=== PATIENT | female | born 1985 | race Hispanic/Latino ===

== ENCOUNTER 2018-09-04 11:09 | Emergency (ER) | payer MEDICAID, SELFPAY ==
[2018-09-04 12:01] LABS: #Eosinphils 0.1 thou/uL (0.0-0.7); #Lymphocytes 1.5 thou/uL (1.20-3.40); #Monocytes 0.8 thou/uL (0.11-0.59); #Neutrophils 9.8 thou/uL (1.40-6.50); %Basophils 0.3 % (0.0-1.0); %Eosinophils 0.6 % (0.0-10.0); %Lymphocytes 12.2 % (21.0-51.0); %Monocytes 6.6 % (0.0-10.0); %Neutrophils 80.3 % (42.0-75.0); Hemoglobin 13.4 g/dL (12.0-16.0); Mean Corpuscular HGB CONC 32.8 g/dL (32.0-36.0); Mean Corpuscular Volume 88.4 fL (78.0-98.0); Platelet Count 175 thou/uL (130-400); RBC Distribution Width 12.6 % (11.5-14.5); Red Blood Cell (RBC) Count 4.61 mill/uL (4.20-5.40); White Blood Cell (WBC) Count 12.2 thou/uL (4.8-10.8)
[2018-09-04 12:11] LABS: Bilirubin Negative (Negative); Blood, Urine Large (Negative); Glucose, Urine (Dipstick) Negative (Negative); Leukocyte Trace (Negative); Nitrite Negative (Negative); Protein, Urine (Dipstick) Trace mg/dL (Neg-Trace); Specific Gravity, Urine 1.015 (1.005-1.030); Urobilinogen 0.2 mg/dL (0.2-1.0)
[2018-09-04 12:12] LABS: Clarity Hazy (Clear)
[2018-09-04 12:25] LABS: Pregnancy Test - Urine (BHCG) POSITIVE (Negative); Pregu Control Background? CLEAR/WHITE (CLR/WHITE); Pregu Control Bar Appear? YES (CONTROL BAR); Specific Gravity 1.015 (1.002-1.036)
[2018-09-04 12:26] LABS: ALT (SGPT) 13 U/L (8-55); AST (SGOT) 18 U/L (5-34); Albumin 4.2 g/dL (3.5-5.0); Alkaline Phosphatase 90 U/L (40-150); Anion Gap 13 mmol/L (10-20); BUN (Urea Nitrogen) 7 mg/dL (7.0-18.7); Bilirubin, Total 0.4 mg/dL (0.2-1.2); Calc. Creatinine Clearance 0 mL/min (70-130); Calcium 9.5 mg/dL (7.8-10.44); Carbon Dioxide 22 mmol/L (22-29); Chloride 105 mmol/L (98-107); Estimated GFR-MDRD Greater than 90; Globulin 3.4 g/dL (2.4-3.5); Glucose 86 mg/dL (70-105); Potassium 3.8 mmol/L (3.5-5.1); Protein, Total 7.6 g/dL (6.0-8.3); Sodium 136 mmol/L (136-145)
[2018-09-04 12:27] LABS: Squamous Epithelial 0-3 HPF (0-3)
[2018-09-04 12:28] LABS: RBC/HPF 21-50 HPF (0-3)
[2018-09-04 12:29] LABS: Bacteria/HPF None Seen HPF (None Seen); Hyaline Casts/LPF NONE SEEN LPF (0-3 Hyaline)
--- NOTE | 2018-09-04 12:34 | ULT ---
ULTRASOUND PELVIC: HISTORY: . Vaginal bleeding. COMPARISON: None. FINDINGS: Real-time, johnson scale, and color evaluation of the pelvis is performed by transvaginal approach. Tra nsvaginal approach was not performed per patient. Ovaries are not seen. The uterus measures 10.4 x 4.6 x 5.4 cm. Endometrial thickness is 1.3 cm. No intrauterine is seen. IMPRESSION: No intrauterine is visualized, although the patient did refuse transvaginal approach. Bharathi mmend correlation with HCG. If HCG level is positive, this would be a of unknown location and post followup HCG and ultrasound would be recommended. POS: [facility]
[2018-09-04] MEDS ORDERED: Acetaminophen 500 MG TAB ONE (16:19)
== END 2018-09-04 18:34 | disposition home or self-care (01) ==
LOC: ERS 11:09
DX: O20.9 Hemorrhage in early pregnancy, unspecified (principal)
CPT/HCPCS: 36415; 76856; 80053; 81003; 81015; 81025; 84702; 85025; 86900; 86901; 99284

== ENCOUNTER 2018-09-07 17:30 | Emergency (ER) | payer SELFPAY ==
[2018-09-07 18:12] LABS: #Eosinphils 0.2 thou/uL (0.0-0.7); #Lymphocytes 1.8 thou/uL (1.20-3.40); #Monocytes 0.7 thou/uL (0.11-0.59); #Neutrophils 4.8 thou/uL (1.40-6.50); %Basophils 0.5 % (0.0-1.0); %Eosinophils 2.1 % (0.0-10.0); %Lymphocytes 23.9 % (21.0-51.0); %Monocytes 8.8 % (0.0-10.0); %Neutrophils 64.6 % (42.0-75.0); Hemoglobin 12.1 g/dL (12.0-16.0); Mean Corpuscular HGB CONC 31.6 g/dL (32.0-36.0); Mean Corpuscular Hemoglobin 28.5 pg (27.0-31.0); Mean Corpuscular Volume 90.4 fL (78.0-98.0); Mean Platelet Volume 9.8 fL (7.4-10.4); Platelet Count 194 thou/uL (130-400); RBC Distribution Width 12.6 % (11.5-14.5); Red Blood Cell (RBC) Count 4.23 mill/uL (4.20-5.40); White Blood Cell (WBC) Count 7.4 thou/uL (4.8-10.8)
--- NOTE | 2018-09-07 21:41 | ULT ---
ULTRASOUND PELVIC TRANSVAGINAL WITH DOPPLER: 09/07/18 HISTORY: Vaginal bleeding. Decreased HCG. COMPARISON: Pelvic ultrasound 09/04/18. FINDINGS: Real time johnson scale, color doppler and spectral analysis of the pelvis was performed in the transvag inal approach. The left ovary is again not well seen. There is poor documentation of flow in the righ t ovary although it is retrouterine and likely positional in nature as it is too far from the probe. There is trace free fluid in the cul-de-sac. The cervix is opened measuring 1 cm with endoluminal prakash ris and hemorrhage. No intrauterine is visualized. The endometrial thickness is approximately 1 cm. IMPRESSION: Likely failed with intraluminal debris of the cervix which is open with hemorrhage. Left ov sally is again not seen. POS: [facility]
[2018-09-07] MEDS ORDERED: Ketorolac Tromethamine 30 MG/ML VIAL ONE (21:49)
[2018-09-07] MEDS ORDERED: Misoprostol 200 MCG TAB VAG SCH (23:00)
== END 2018-09-07 23:47 | disposition home or self-care (01) ==
LOC: ERS 17:30
DX: O03.4 Incomplete spontaneous abortion without complication (principal)
CPT/HCPCS: 36415; 76856; 84702; 85025; 86900; 86901; 96372; J1885

== ENCOUNTER 2018-09-08 13:31 | Emergency (ER) | payer SELFPAY ==
[2018-09-08 14:20] LABS: #Basophils 0.1 thou/uL (0.0-0.2); #Eosinphils 0.2 thou/uL (0.0-0.7); #Lymphocytes 1.7 thou/uL (1.20-3.40); #Monocytes 0.7 thou/uL (0.11-0.59); #Neutrophils 4.1 thou/uL (1.40-6.50); %Basophils 0.8 % (0.0-1.0); %Eosinophils 2.5 % (0.0-10.0); %Lymphocytes 25.4 % (21.0-51.0); %Monocytes 10.6 % (0.0-10.0); %Neutrophils 60.7 % (42.0-75.0); Mean Corpuscular HGB CONC 30.9 g/dL (32.0-36.0); Mean Corpuscular Hemoglobin 27.8 pg (27.0-31.0); Mean Corpuscular Volume 90.2 fL (78.0-98.0); Mean Platelet Volume 9.6 fL (7.4-10.4); Platelet Count 201 thou/uL (130-400); RBC Distribution Width 12.6 % (11.5-14.5); Red Blood Cell (RBC) Count 4.32 mill/uL (4.20-5.40); White Blood Cell (WBC) Count 6.8 thou/uL (4.8-10.8)
== END 2018-09-08 15:19 | disposition home or self-care (01) ==
LOC: ERS 13:31
DX: O03.9 Complete or unspecified spontaneous abortion without complication (principal)
CPT/HCPCS: 36415; 84702; 85025; 99284

== ENCOUNTER 2019-09-30 10:12 | Inpatient (IN) | payer MEDICAID, OTHER, SELFPAY ==
[2019-09-30] MEDS ORDERED: hydrALAZINE 20 MG/ML VIAL SLOW IVP PRN ×2 (10:34→20:24)
[2019-09-30] MEDS ORDERED: Ondansetron PF 4 MG/2 ML Vial IVP PRN ×3 (10:34→20:24)
[2019-09-30] MEDS ORDERED: Promethazine HCl 25 MG/ML VIAL IM PRN ×2 (10:34→13:49)
[2019-09-30 10:39] VITALS: BMI 34.0
[2019-09-30] MEDS ORDERED: Bicitra 30 ML UDCUP PO SCH (10:45)
[2019-09-30] MEDS ORDERED: CEFAZOLIN 2 GM in Premix Bag 1 BAG IVPB SCH (10:45)
[2019-09-30] MEDS: Lactated Ringer's 1,000 ML IV SCH ×2 (10:49→11:04)
[2019-09-30] MEDS ORDERED: Bicitra 30 ML UDCUP ONE (11:03)
[2019-09-30 11:07] LABS: Hemoglobin 10.5 g/dL (12.0-16.0); Mean Corpuscular HGB CONC 33.2 g/dL (32.0-36.0); Mean Corpuscular Hemoglobin 28.5 pg (27.0-31.0); Red Blood Cell (RBC) Count 3.67 mill/uL (4.20-5.40); White Blood Cell (WBC) Count 9.4 thou/uL (4.8-10.8)
--- NOTE | 2019-09-30 11:07 | PDOC.FPROB ---
FMR OB H&P: HPI - History of Present Illness Chief Complaint: Repeat LTCS History of Present Illness: 34 yo @ 39.5 presents for repeat LTCS. pLTCS 2/2 failure to progress complicated by cervical extensions. Counseled on risks benefits and alternatives. TOLAC gm <34%, pt has elected for repeat LTCS. Rare ctx, no bleeding, DC, LOF. Pos movment. Primary Care Physician: Mac FMR OB H&P: Current - Care : 3 Para: 1011 Gestational age: 39.5 Due date: 10/02/2019 Dating Criteria: LMP c/w 1st tri US Course/Complications: Gestational thrombocytopenia, rubella NI - OB Labs Blood type: B RH: positive Antibody Screen: negative HIV: negative RPR: negative HepBsAg: negative Rubella: non-immune Quad screen: unknown Urine drug screen: not done Gonorrhea: negative Chlamydia: negative 1 hour gtt: WNL GBS: negative Platelets: Pending FMR OB H&P: History - Past Medical History PMH: Chronic vs gestational thrombocytopenia - OB History OB History: 1 prior CS for failure to progress with cervical extesnsion at delivery - Surgical History Sx History: 1 prior CS - Social History Social History: No etoh, tobacco or drug abuse - Family History Family History: Denies FMR OB H&P: Medications - Current Home Medications: Medication Instructions Recorded Confirmed Type Iron Carb,Gl/FA/B12/C/Docusate 1 tablet PO DAILY 11/24/16 11/24/16 History [Ferralet 90] Vit,Calc76/Iron/Folic 1 tablet PO DAILY 11/24/16 11/27/16 History [Prenatabs Rx Tablet] Allergies/Adverse Reactions: Allergies Allergy/AdvReac Type Severity Reaction Status Date / Time No Known Allergies Allergy Verified 09/30/19 10:37 FMR OB H&P: ROS - Review of Systems General: denies: fever/chills Eyes: denies: eye pain, vision changes, scotomas ENT: denies: nasal congestion Cardiovascular: denies: chest pain Respiratory: denies: cough, congestion, shortness of breath Gastrointestinal: denies: abdominal pain, nausea, vomiting, diarrhea, constipation Genitourinary (Female): reports: contractions. denies: hematuria, polyuria, vaginal discharge, vaginal pain, vaginal bleeding, vaginal pressure Neurologic: denies: syncope, weakness Integumentary: denies: rash FMR OB H&P: Vital Signs - Heart Tones Baseline: 130 Variability: moderate Acceleration: present Deceleration: absent Category: category 1 [place] contractions every: rare few FMR OB H&P: Physical Exam - Physical Exam General: NAD, awake, alert and oriented HEENT: normocephalic and atraumatic, PERRLA, EOMI, grossly normal vision, grossly normal hearing Neck: trachea midline Heart: RRR, normal S1/S2, no murmurs/rubs/gallops General: CTAB, no respiratory distress Abdomen: soft, gravid, non-tender Neurological: no focal deficit Lymphatic: no unusual bruising or bleeding, no purpura - Pelvic Exam Estimated Weight: 7 lbs FMR OB H&P: A/P - Problem List (1) Term Current Visit: Yes Status: Acute Code(s): Z34.90 - ENCNTR FOR SUPRVSN OF NORMAL , UNSP, UNSP TRIMESTER Disposition: Stable, admit to l&d for rLTCS 1) TIUP - pre op abx - type and screen - platelets pending as well as h/h - admit to l&d for dwayne rLTCS Discussion: Date/Time: 09/30/19 1105 This H&P was discussed with [] and [] who agree with the above documentation and plan.
[2019-09-30 11:26] LABS: #Basophils 0.1 thou/uL (0.0-0.2); #Lymphocytes 1.6 thou/uL (1.20-3.40); #Monocytes 0.6 thou/uL (0.11-0.59); #Neutrophils 7.1 thou/uL (1.40-6.50); %Basophils 1.4 % (0.0-1.0); %Eosinophils 0.1 % (0.0-10.0); %Lymphocytes 16.5 % (21.0-51.0); %Monocytes 6.7 % (0.0-10.0); %Neutrophils 75.3 % (42.0-75.0); Large Platelets SLIGHT; MDiff Complete? YES; Mean Platelet Volume 11.8 fL (7.4-10.4); Platelet Count 118 thou/uL (130-400); Platelet Morphology Comment Appears Decreased; Polychromasia SLIGHT = 2-3 cells (100X) (0-2/hpf); RBC Distribution Width 13.9 % (11.5-14.5)
[2019-09-30 11:38] LABS: Syphilis Antibody Nonreactive (Nonreactive); Syphilis Antibody Index 0.05 S/CO (<1.00 Non-Reactive)
[2019-09-30 11:57] LABS: HBSAg Index 0.21 S/CO (0-0.99); Hep B Surf Ag Non-Reactive S/CO (NonReactive)
[2019-09-30] MEDS ORDERED: L&D-Morphine 4 MG/ML VIAL SLOW IVP PRN (13:48)
[2019-09-30] MEDS ORDERED: HYDROmorphone 2 MG/ML VIAL SLOW IVP PRN (13:48)
[2019-09-30] MEDS ORDERED: Ondansetron HCl/PF 4 MG/2 ML Vial IVP PRN (13:48)
[2019-09-30] MEDS ORDERED: Naloxone HCl 0.4 mg/ml Vial IVP PRN ×2 (13:49)
[2019-09-30] MEDS ORDERED: diphenhydrAMINE 50 MG/ML VIAL IVP PRN (13:49)
[2019-09-30] MEDS ORDERED: Promethazine HCl 25 MG SUPP PR PRN (13:49)
[2019-09-30] MEDS ORDERED: Naloxone HCl 0.4 mg/ml Vial IV PRN (13:49)
[2019-09-30] MEDS ORDERED: MORPHINE 5 MG/10 ML PF VIAL ONE (13:56)
[2019-09-30] MEDS ORDERED: Ondansetron PF 4 MG/2 ML Vial ONE (13:56)
[2019-09-30] MEDS ORDERED: EPINEPHrine 1 MG/ML AMP ONE (13:56)
[2019-09-30] MEDS ORDERED: Ketorolac Tromethamine 30 MG/ML VIAL IVP SCH (14:00)
[2019-09-30] MEDS ORDERED: Communication Order-Pharmacy FS SCH (14:00)
[2019-09-30] MEDS ORDERED: EPHEDRINE 25 MG/5 ML SYRINGE ONE (15:33)
[2019-09-30] MEDS ORDERED: Misoprostol 200 MCG TAB ONE (17:03)
[2019-09-30] MEDS ORDERED: Morphine 4 MG/ML VIAL ONE (17:14)
[2019-09-30] MEDS ORDERED: Misoprostol 200 MCG TAB PR SCH (17:45)
[2019-09-30] MEDS ORDERED: NS / Oxytocin 40 units/1000ml 1,000 ML ONE (17:48)
[2019-09-30] MEDS ORDERED: Meperidine HCl/PF 25 MG/ML VIAL ONE ×2 (17:58→19:37)
[2019-09-30] MEDS: Meperidine HCl/PF 25 MG/ML VIAL SLOW IVP PRN ×2 (18:03→19:39)
[2019-09-30] MEDS ORDERED: Ketorolac Tromethamine 30 MG/ML VIAL ONE (18:17)
[2019-09-30] MEDS: Ketorolac Tromethamine 30 MG/ML VIAL IVP PRN (18:19)
[2019-09-30] MEDS: Tranexamic Acid 1,000 MG/10 ML VIAL ONE ×2 (18:23→18:30)
[2019-09-30] MEDS ORDERED: Tranexamic Acid 1,000 MG/10 ML VIAL IVP SCH (18:30)
--- NOTE | 2019-09-30 18:35 | OP ---
DATE OF PROCEDURE: 09/30/2019 RESIDENT SURGEON: Jett Watts DO [employer] SURGEONS: 1. Jamari Somers DO. 2. Roseann Self MD. ATTENDING SURGEON: Alvin Hdz MD PROCEDURE PERFORMED: Repeat low-transverse section. PREOPERATIVE DIAGNOSES: 1. Term intrauterine . 2. Previous low-transverse section. 3. Gestational thrombocytopenia. 4. Rubella nonimmune. POSTOPERATIVE DIAGNOSES: 1. Term intrauterine , delivered. 2. Previous low-transverse section. 3. Gestational thrombocytopenia. 4. Rubella nonimmune. ANESTHESIA: Spinal. INDICATIONS FOR PROCEDURE: The patient is a 34-year-old, G3, P1-0-1-1 female at 39 and 5 weeks by 8.1-week ultrasound, who presents for repeat scheduled section. DESCRIPTION OF PROCEDURE: After risks, benefits, and alternatives were explained to the patient, she gave informed consent. Preoperative antibiotics included Ancef 2 g IV. The patient was taken to the operating room, and spinal anesthesia was initiated. She was placed in the supine position with a left tilt, prepped and draped in usual sterile fashion. A Pfannenstiel incision was made with a scalpel and carried down the level of fascia, which was sharply nicked. The fascial cut was extended bilaterally with Kaplan scissors. The inferior and superior edges of the cut fascial edges were elevated with Sarah clamps, and the underlying rectus muscles were sharply and bluntly dissected free. The recti were divided digitally and retracted manually. The peritoneum was entered bluntly and retracted manually. Bladder blade was placed. A low-transverse score was made with the scalpel, and the uterus was entered in midline with the scalpel. Clear fluid was seen. The hysterotomy was extended manually. The infant was noted to be vertex and easily delivered by fundal pressure. Mouth and nares were bulb suctioned. The cord was clamped and cut, and a grossly normal female was handed to the waiting nurse. Cord blood was obtained. Placenta was spontaneously delivered, found to be intact with the 3--vessel cord and discarded. The uterus was externalized. Endometrium was curetted with dry lap. The bladder blade was placed. The uterus was closed with a running locking #1 Monocryl. Following this, the left superior edge of the hysterotomy was bovied with Bovie cauterization, and hemostasis was noted. The abdomen was suctioned free of clots, and the gutters were inspected, also noted to be free of clots. The ovaries and tubes were visualized and grossly normal on exam. The uterus was then internalized, and the hysterotomy was again noted to be hemostatic. Fascia was then closed with a running nonlocking 0 PDS suture. The subcutaneous tissue was irrigated, and there were no bleeders. The skin was approximated with blaine, and a pressure dressing was placed. All counts were correct. The patient tolerated procedure well and was taken to recovery room in stable condition. ESTIMATED BLOOD LOSS: 600 mL. COMPLICATIONS: None. SPECIMENS: Cord blood sent to the lab for blood type. FINDINGS: Grossly normal female with Apgars of 8 and 9. Grossly normal placenta with 3-vessel cord discarded. DRAINS: [place] to gravity draining clear urine. Job ID: [id number]
[2019-09-30] MEDS ORDERED: Lanolin Ointment 7 GM TUBE TOP PRN (20:24)
[2019-09-30] MEDS ORDERED: diphenhydrAMINE 25 MG CAP PO PRN (20:24)
--- NOTE | 2019-09-30 20:40 | PDOC.BPN ---
- Brief Progress Note After pt had elevated uterus reduced with manual manipulation and oozing blood, non-gushing. Pt's vitals were stable. Non-tachy, blood pressures normotensive. Pt was asymptomatic for acute blood loss. Due to low platelet count decision was made to administer TXA. Pt's uterus was firm which is why uterotonic agent was not administered again. Pt's bleeding discontinued after TXA so second dose was not administered. Will recheck periodically through the evening. Jamari Somers, 09/30/19 [id number]
[2019-09-30] MEDS ORDERED: Ferrous Sulfate 325 MG TAB PO SCH (21:30)
[2019-09-30] MEDS: Docusate Calcium (SURFAK) 240 MG CAP PO SCH (23:39)
[2019-10-01] MEDS: Lactated Ringer's 1,000 ML IV SCH (05:17)
[2019-10-01] MEDS: Ketorolac Tromethamine 30 MG/ML VIAL IVP PRN (05:17)
[2019-10-01] MEDS: Simethicone Chewable 80 MG TAB PO PRN ×3 (05:20→14:51)
[2019-10-01 06:35] LABS: #Lymphocytes 1.6 thou/uL (1.20-3.40); #Monocytes 0.5 thou/uL (0.11-0.59); #Neutrophils 6.1 thou/uL (1.40-6.50); %Basophils 0.5 % (0.0-1.0); %Eosinophils 0.4 % (0.0-10.0); %Lymphocytes 19.4 % (21.0-51.0); %Monocytes 5.7 % (0.0-10.0); %Neutrophils 74.1 % (42.0-75.0); Hemoglobin 8.1 g/dL (12.0-16.0); Mean Corpuscular HGB CONC 32.7 g/dL (32.0-36.0); Mean Corpuscular Hemoglobin 28.6 pg (27.0-31.0); Mean Corpuscular Volume 87.5 fL (78.0-98.0); Mean Platelet Volume 11.9 fL (7.4-10.4); Platelet Count 93 thou/uL (130-400); RBC Distribution Width 13.9 % (11.5-14.5); Red Blood Cell (RBC) Count 2.82 mill/uL (4.20-5.40); White Blood Cell (WBC) Count 8.2 thou/uL (4.8-10.8)
--- NOTE | 2019-10-01 07:41 | PDOC.PP ---
Post Progress Note Post Day #: 1 Subjective: 34 yo ->2011 pp day 1 s/p rLTCS. Pt reports pain well controlled with pain medications, garber remains in place for concern of decreased UOP, tolerating PO. She reports she is feeling well. PO intake tolerated: yes Flatus: yes Ambulation: no Vital Signs (12 hours) Temp Pulse Resp BP BP Pulse Ox 10/01/19 05:15 98.1 F 62 16 110/53 L 09/30/19 23:00 99.2 F 63 16 109/58 L 09/30/19 21:00 98.6 F 72 16 120/56 L 98 09/30/19 20:00 98.8 F 71 16 116/58 L 96 Weight Weight 71.214 kg - Physical Examination General: NAD Cardiovascular: no m/r/g, RRR Respiratory: clear to auscultation bilaterally, non-labored breathing Abdominal: + bowel sounds, no distention, appropriately TTP Skin: no rash (Pressure dressing in place.) Neurological: no gross focal deficits Psychiatric: normal affect Result Diagrams: 10/01/19 05:52 Additional Labs: Post Labs Blood Type B POSITIVE 09/30/19 10:50 Hep Bs Antigen Non-Reactive S/CO (NonReactive) 09/30/19 10:50 (1) Term Code(s): Z34.90 - ENCNTR FOR SUPRVSN OF NORMAL , UNSP, UNSP TRIMESTER Status: Acute (2) Delivery by section Code(s): [id number] - Status: Acute - Assessment/Plan 1) s/p rLTCS - pt received cytotec and txa and resolved pp bleeding - monitor for s/s of continued bleeding - pending pp course hopeful for dc tomorrow - PPCC undecided - garber to remain in place for now for strict IsOs, if adequate UOP dc today and encourage ambulation. Dispo: Stable, monitor for continued bleeding. Remove garber and voiding trial today.
[2019-10-01] MEDS ORDERED: Measles/Mumps/Rubella 10 MCG/0.5 ML VIAL SC ONE (09:00)
[2019-10-01] MEDS: Docusate Calcium (SURFAK) 240 MG CAP PO SCH ×2 (09:46→21:17)
[2019-10-01] MEDS: Prenatal Vitamin 1 TAB PO SCH (09:46)
[2019-10-01] MEDS: Ferrous Sulfate 325 MG TAB PO SCH ×2 (09:46→16:02)
[2019-10-01] MEDS: HYDROcodone/Acetaminophen 5/325 mg Tablet PO PRN ×4 (09:50→22:49)
[2019-10-01] MEDS ORDERED: Sodium Chloride 0.9% 10 ML ONE (10:10)
[2019-10-01] MEDS: Ibuprofen 800 MG TAB PO SCH (21:17)
[2019-10-02] MEDS: HYDROcodone/Acetaminophen 5/325 mg Tablet PO PRN ×4 (03:40→21:29)
[2019-10-02] MEDS: Ibuprofen 800 MG TAB PO SCH ×3 (06:04→21:27)
--- NOTE | 2019-10-02 08:01 | PDOC.PP ---
Post Progress Note Post Day #: 2 Subjective: 34 yo pp day 2 s/p rLTCS. Pt reports her pain is persistent since yesterday, although uchanged. She is ambulating infrequently per nurse. Tolerating PO, passing flatus, normal voiding. Denies fever, chills. PO intake tolerated: yes Flatus: yes Ambulation: yes Vital Signs (12 hours) Temp Pulse Resp BP Pulse Ox 10/02/19 04:42 98.0 F 67 14 115/74 97 10/02/19 00:33 98.7 F 68 12 108/53 L 97 Weight Weight 71.214 kg - Physical Examination General: NAD Cardiovascular: no m/r/g, RRR Respiratory: clear to auscultation bilaterally, non-labored breathing Abdominal: + bowel sounds, no distention, appropriately TTP Extremities: negative homans (B) Skin: CS incision dry & intact Neurological: no gross focal deficits Psychiatric: normal affect Result Diagrams: 10/01/19 05:52 Additional Labs: Post Labs Blood Type B POSITIVE 09/30/19 10:50 Hep Bs Antigen Non-Reactive S/CO (NonReactive) 09/30/19 10:50 (1) Term Code(s): Z34.90 - ENCNTR FOR SUPRVSN OF NORMAL , UNSP, UNSP TRIMESTER Status: Acute (2) Delivery by section Code(s): [id number] - Status: Acute (3) Gestational thrombocytopenia Code(s): O99.119 - OTH DIS OF BLD/BLD-FORM ORG/IMMUN MECHNSM COMP PREG,UNSP TRI ; D69.6 - THROMBOCYTOPENIA, UNSPECIFIED Status: Acute - Assessment/Plan 1) s/p rLTCS - will ensure adequate pain control - encourage ambulation - hopeful dc today later vs tomorrow - given some weakness and h/o gest thrombocytopenia, repeat h/h with platelets and add IS for post op care 2) Gest thromb: - repeat h/h with platelets Dispo: Stable, recheck h/h, add IS. Monitor throughout morning, consider later dc to home today vs tomorrow.
[2019-10-02] MEDS: Simethicone Chewable 80 MG TAB PO PRN ×2 (09:08→21:33)
[2019-10-02] MEDS: Prenatal Vitamin 1 TAB PO SCH (09:08)
[2019-10-02] MEDS: Ferrous Sulfate 325 MG TAB PO SCH ×2 (09:08→17:14)
[2019-10-02] MEDS: Docusate Calcium (SURFAK) 240 MG CAP PO SCH ×2 (09:09→21:27)
[2019-10-02 10:08] LABS: Hemoglobin 8.7 g/dL (12.0-16.0); Platelet Count 116 thou/uL (130-400)
[2019-10-02 20:36] VITALS: TEMP 98.9
[2019-10-03] MEDS: HYDROcodone/Acetaminophen 5/325 mg Tablet PO PRN ×2 (03:06→09:04)
[2019-10-03] MEDS: Ibuprofen 800 MG TAB PO SCH (05:54)
[2019-10-03 08:13] VITALS: BP 136/76
[2019-10-03] MEDS: Ferrous Sulfate 325 MG TAB PO SCH (09:04)
[2019-10-03] MEDS: Docusate Calcium (SURFAK) 240 MG CAP PO SCH (09:04)
[2019-10-03] MEDS: Simethicone Chewable 80 MG TAB PO PRN (09:04)
[2019-10-03] MEDS: Prenatal Vitamin 1 TAB PO SCH (09:04)
--- NOTE | 2019-10-03 09:58 | PDOC.PP ---
Post Progress Note Post Day #: 3 Subjective: 34 yo G3 now P2 pp day 3 s/p rLTCS. Pt reports pain improving. All pp milestones met. Reports she is ready to go home. PO intake tolerated: yes Flatus: yes Ambulation: yes Vital Signs (12 hours) Temp Pulse Resp BP Pulse Ox 10/03/19 08:12 98.9 F 75 20 136/76 98 Weight Weight 71.214 kg - Physical Examination General: NAD Cardiovascular: no m/r/g, RRR Respiratory: clear to auscultation bilaterally, non-labored breathing Abdominal: + bowel sounds, lochia, no distention, appropriately TTP Extremities: negative homans (B) Skin: CS incision dry & intact, no rash Neurological: no gross focal deficits Psychiatric: normal affect Result Diagrams: 10/02/19 09:44 Additional Labs: Post Labs Blood Type B POSITIVE 09/30/19 10:50 Hep Bs Antigen Non-Reactive S/CO (NonReactive) 09/30/19 10:50 (1) Term Code(s): Z34.90 - ENCNTR FOR SUPRVSN OF NORMAL , UNSP, UNSP TRIMESTER Status: Acute (2) Delivery by section Code(s): [id number] - Status: Acute (3) Gestational thrombocytopenia Code(s): O99.119 - OTH DIS OF BLD/BLD-FORM ORG/IMMUN MECHNSM COMP PREG,UNSP TRI ; D69.6 - THROMBOCYTOPENIA, UNSPECIFIED Status: Acute - Assessment/Plan 1) s/p rLTCS - pp day 3, pain improving - ambulating and tolerating PO, all pp milestones met - plan for dc to home today, blaine out and steristrips to be placed 2) Gest thrombocytopenia - recheck platelets 6 weeks pp - cosndier further workup if persistently low Dispo: stable, dc to home today.
== END 2019-10-03 12:10 | disposition home or self-care (01) | DRG 787 ==
LOC: L&D 10:12 → 3SW 20:07
PROVIDERS: ADMIT Family Medicine; ATTEND Family Medicine
PROC: 10D00Z1 Extraction of Products of Conception, Low, Open Approach (ICD-10-PCS; principal; 2019-09-30)
DX: O62.0 Primary inadequate contractions (principal); O99.12 Other diseases of the blood and blood-forming organs and certain disorders involving the immune mechanism complicating childbirth; O72.1 Other immediate postpartum hemorrhage; O34.219 Maternal care for unspecified type scar from previous cesarean delivery; Z3A.39 39 weeks gestation of pregnancy; Z37.0 Single live birth
CPT/HCPCS: 36415; 51702; 85014; 85018; 85025; 85049; 86780; 86850; 86870; 86900; 86901; 86922; 87340; J0171; J0690; J1885; J2175; J2270; J2274; J2405